=== PATIENT | female | born 1970 | race Caucasian/White ===

== ENCOUNTER 2022-07-14 12:51 | Outpatient (RCR) | payer OTHER, SELFPAY ==
--- NOTE | 2022-07-22 11:32 | MHC.SP.ADU ---
Referring provider: Dr. Augustina Larson Reason for Referral: Referred by MD at request of patient. 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 Susi reports that her main issue is that she is too loud and talks too fast and her family members complain that she is hurting their ears. She reports that her family is her Mother and disabled brother with whom she currently lives in [place]. Susi reports that she is trilingual, with her first language being French, her second, Finnish and her third, Citizen [place] Sign Language (ASL). During this assessment, an interface analyst was present throughout, and Susi primarily communicated in ASL. She reported that she became deaf at age 1 after an episode of Chicken Pox, and soon after, her Family returned for a period of time to [employer], which was the first language she was exposed to. The family returned to the and she began her education at [employer], being initially instructed in Oral Language. She reports that she was very frustrated during her time at [employer] and quit when she was 9 years old. 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 She progressed from there to [employer], where she said she first learned true ASL, and earned a Bachelor's degree. 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 Her primary communication/language as an adult has been ASL, however this has created challenges with communicating with her family members who are hearing and do not have ASL proficiency. Susi reports that she did wear hearing aids for a period of time when she was working, but found they mostly picked up and amplified environmental noise which gave her migraines. However she stated that she went to see an ENT in 2021 who referred her for hearing aids, but as of yet she has not found a dispenser who will take her medical insurance. She also reports that she attended Speech Therapy last fall for a period of four weeks in [place], but she did not feel they were able to address her specific needs, as she reported they mostly worked with people who had strokes. Susi is currently using a walker to ambulate and attending physical and occupational therapy, due to an injury following a fall as well as vertigo. Medical History: Allergies Arthritis Head Injury Hearing Loss Thyroid Issues Other: Vertigo, Fibromyalgia, Rich's Disease, Migraines Medication List: Recent Hospitalizations: No Respiratory Needs: Room Air Patient Orientation: Alert & Oriented x 4 Social History: Employment Status: Unemployed Highest level of education obtained: Completed Bachelor's Current Living Situation: Lives with mother and disabled adult brother in a private home in [place], [place]. Assistive Devices in use: Cane, Walker Past Speech Language Therapy: [facility] Speech/Language, Fall of 2021 for a period of four weeks. Other Therapies Seen in Current Calendar Year: Occupational Therapy Physical Therapy Swallowing History: Dysphagia Specific: Within Functional Limits Comments: n/a Reported Speech, Language, Cognition difficulties: Speaking Comments: Candy King expresses a great deal of frustration with being to communicate well and effectively using oral language with others, with reports that her family state that she is too loud, gives them a headache, and that she talks too fast. Due to hearing impairment, she is unable to self monitor her oral communication. She additionally reports that all oral communication training she received during her education was poor and done only in the context of regular education instruction (e.g. had no special instruction specifically in oral communication). Quality of Life: Good Patient Stated Goal of Speech-Language Therapy: Assess stimulability for visual feedback/monitoring of voice and speech, ongoing assessment of oral speech articulation needs. Assessment Speech Production: Clinical Impression: Imprecise articulation of speech sounds, omission of sounds, irregular stress pattern, limited prosody. Voice Assessment: Voice Loudness: Severely Soft/Quiet Voice Nasal Resonance: Hypernasal Voice Oral Resonance: Normal Voice Phonatory-based Quality: Strident, Harsh Voice Pitch: Mildly High Voice Other Observations: Disordered Intonation, Disordered Stress Pattern Breath Support: Abdominal at rest, during phonation, during conversation Postural: Balanced Stance, neck static, shoulders symmetrical. Mild jaw tension noted. Therapeutic Probes: Shifting tone focus: Effortful. reduced pitch range Easy Onset: Imprecise articulation Hard Glottal Attack: Imprecise articulation Increase loudness: Effortful, limited Decrease loudness: Effortful Increase fundamental frequency: Effortful, limited range Decrease fundamental frequency: Effortful, limited range Stimulability and level of cuing: Moderat Clinicial Observations: Susi presents with moderate to severe issues related to voice and speech production secondary to deaf/ZUNI, multilingual communication background and a history limited specialized training in oral communication.? Susi's primary complaint and reason for seeking Speech/Language Therapy is for her hearing family members to comfortably understand her when she speaks.? On assessment today, both scripted and spontaneous speech evidences low volume (which contrasts with Susi's stated perception that she is too loud ), strident/harsh/nasal vocal quality, limited prosody as it relates to speech intonation and stress pattern, and imprecise articulation of many speech sounds.? Susi's oral speech to an unfamiliar listener would be very limited in intelligibility.? However, importantly, Meghas primary form of communication is ASL, and she is a highly effective communicator in this language. Candy's goal, however is to be a more effective communicator in oral language. Impressions and Recommendations Summary: Impact on Daily Function/Activity Limitations: Daily Activities: Severe Interpersonal Interactions: Severe Community: Severe Prognosis for Improvement: Guarded Comment: Note: Guarded impact/prognosis noted above is for oral communication only. Susi in ASL is highly effective communicator, and in that language, she is able to function in all daily aspects normally. Prognosis for improvement is guarded due to level and severity of intelligibility or oral speech and age. Recommendation for Speech Therapy: Frequency/Duration: One, fourty five minute speech therapy session weekly, as a trial for a period of four weeks to determine stimulability and effectiveness Date Range for Service Requested: Three months if intervention evidences progress after four weeks. Time to Reassess: Four weeks Operator/Assistant Foreman Goals: Sammy will improve vocal volume, prosody and articulation for oral communication. Short Term Goals: Goal # : Susi will complete the [place] Test of Articulation to assess speech sound production in Finnish. Goal Status: Goal# : Using a visual feedback device, Sammy will use appropriate vocal volume, with loudness at an appropriate audible level 80% of the time in observed contexts. Goal Status: Goal # : Using a visual feedback device or pacing strategy, Sammy will slow her rate of speech in 4 out of 5 conversational context. Goal Status: Goal # : Using visual cuing, Candy will produce varied target consonant sounds in Finnish with 80% accuracy. Goal Status: Patient Education: Completed: Yes Patient/Caregiver Education: Described Results of Evaluation Patient expressed understanding of evaluation Patient agrees with goals and treatment plan Comments/Barriers to Learning: Radiosonde Specialist Clinican/Clinical Fellow: No Supervisory Statement: N/A Speech Language Pathologist: Lilly Weber M.A., CCC-PATTERN CHAIN MAKER SUPERVISOR
== END 2022-08-11 12:44 | disposition still patient (30) ==
LOC: HO.SH 12:51
PROVIDERS: Visit Provider Pediatrics
DX: F80.4 Speech and language development delay due to hearing loss (principal)
CPT/HCPCS: 92524

== ENCOUNTER 2023-05-17 11:00 | Outpatient (RCR) | payer OTHER, SELFPAY ==
--- NOTE | 2023-02-22 15:29 | MHC.SL.SOA ---
Referring Provider: Dr. Augustina Larson Reason for Referral: Referred by MD at request of patient. 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 Primary Speech Language Diagnosis:F80.4 Speech and language development delay due to hearing loss Secondary Speech Language Diagnosis:R49.9 Unspecified voice Number of Authorized Visits Remaining: Authorization End Date: Reason for Visit:[id number] Individual Treatment Other: Subjective:Candy Arnett was on time for today's session which ran more than the allotted 45 minutes. The past several sessions had been cancelled due to therapist and Candy's illnesses, difficulties scheduling an grading machine feeder, as well as problems with transportation, which failed to show up last week. Candy, as a consequence, had quite a bit to report, and initially took considerable time talking about issues through the grading machine feeder, before settling down and getting to therapy tasks. The continuation of therapy was discussed at length with Candy at the end of the session, as she currently needs Insurance re-authorization to continue, and for the most part has met attainable currently therapy goals. Candy has an ongoing desire to improve her oral speech for daily communication needs, however this has not been her primary communication mode for most of her adult life (her dominant communication/language is ASL), nor did she acquire a good basis for this communication mode during her primary and secondary school education, where these skills are normally instructed over an extended period of development. It was explained that affective acquisition of oral language would be a long process, that may not be supported by insurance given it is essentially instructing a language as well as shaping specific articulation targets for effective communication. Candy requested that a direct inquiry be made to her insurance carrier to determine if it will cover this type of intervention through speech therapy. Objective: Candy worked on breath support, monitoring volume and accurate production of [place] speech sounds in structured therapeutic activities. Assessment:Goal #1: Candy produced minimal pairs with contrasting vowel sounds: long a and short a with 70% accuracy, again having most difficulty with words that have long a followed by /l/ or /t/ which targets could not be reliably stimulated. On mimimal pair contrasts of long and short /e/ she also needed direct and specific cuing to produce the contrasting sounds (60% accuracy). Goal #2: Candy produced volume variation with a simple visual prompt (e.g. arrow going up or down) with good accuracy today (80%). Physical context cues (e.g. physical energy/breath support on loud voice) as well as social context cues (listener's behavior with loud/soft voice) were reviewed, with Candy giving good self reporting. Goal #3: Pacing of speech when using oral communication was wfl. Goal #4: n/a this session due to time constraints. Additionally: Direct caption/translation brian was modelled and set up for Candy on her IPad as well as modelled on an [employer] phone. The brian very accurately captioned oral communication of both hearing speakers present (the therapist and the ASL strategic planning director) but omitted or poorly interpreted Candy's oral speech (and therefore not an appropriate feedback device for helping her independently practice her speech). Candy also demonstrated an Brian she has on her phone that can cue her if her voice resembles shouting as well as other loud environmental sounds that she does not hear (dog barking, car horn, etc.). Notes: Ongoing assessment of speech articulation and sounds in error. Ongoing assessment for stimulability for self monitoring using visual feedback. Plan: Goal # : Susi will produce target speech sounds in the initial position in words in the context of an utterance (targets: s, r, ch, dj, sh) with 80% accuracy Status of Goal: Revised Goal Goal # : Using a visual feedback device, Sammy will use appropriate vocal volume, with loudness at an appropriate audible level 80% of the time in observed contexts. Status of Goal: Goal # : Using a visual feedback device or pacing strategy, Sammy will slow her rate of speech in 4 out of 5 conversational context. Status of Goal: Goal # : Using visual cuing, Candy will produce varied target consonant sounds in [place] with 80% accuracy. Status of Goal: Seen by: Graduate/Clinical Fellow: No Supervisory Statement: f_Reg Query Last Value , MHC.AU.SIGNATUR Speech Language Pathologist: Lilly Weber M.A., CCC-LAVENDER FARM WORKER
== END 2023-06-10 16:05 | disposition still patient (30) ==
LOC: HO.SH 11:00
PROVIDERS: Visit Provider Pediatrics
DX: F80.4 Speech and language development delay due to hearing loss (principal); R49.9 Unspecified voice and resonance disorder
CPT/HCPCS: 92507

== ENCOUNTER 2023-09-27 11:00 | Outpatient (RCR) | payer OTHER, SELFPAY ==
--- NOTE | 2023-06-29 12:28 | MHC.SL.SOA ---
Addendum entered and electronically signed by KOBY Campos 06/29/23 12:50: Candy Huston current PCP is Mell Whitfield MD; not Dr. Augustina Larson as listed below (former PCP who gave initial referral). Original Note: Referring Provider: Dr. Augustina Larson Reason for Referral: Referred by MD at request of patient. Date of Plan of Treatment:07/14/22 Onset of Symptoms/Illness:07/15/19 Date Treatment Started:07/14/22 Medical Diagnosis: Primary Speech Language Diagnosis:R49.8 Unspecified voice and resonance disorders Secondary Speech Language Diagnosis:F80.0 Specific developmental disorders of speech and language Number of Authorized Visits Remaining: Authorization End Date: Reason for Visit:10011 Individual Treatment Other: Subjective:Candy Arnett was on time for [facility] appointment with the full time staff interpreter arriving a few minutes late. Candy was again quite voluble at the start of the session, reporting about all members of her family being ill and the of a close friend. Part of today's session was a brief re-assessment of articulation skills using an informal measure (protocol from [facility] ) as well as some initial discussion regarding the rational for continuing therapy for oral language improvement. As this discussion began at the end of the session and generated many comments, it was tabled for the next meeting. Objective: Sammy practiced structured exercises to improve control of vocal volume, articulation of specific speech sounds, and pacing strategies to improve her functional ability to orally communicate with hearing communication partners who do not understand ASL. Assessment:Re-assessment/screen of Speech Articulation (Protocol from [facility]ria/[facility] ). Bilabial Sounds: Occasional de-voicing of /b/; Alveolar sounds: devoicing of /d/; Sibilants(s, z, sh): distortion or fronting (e.g. ItEE for icy) of all sounds in all positions; Affricates (ch, dj): Distortion or /t/ substitution of all sounds in all positions; Glides (l, j, w): accurate production; /s/ Blends: distortion, omission or substitutions (with/t/) in all positions; /l/ blends: omission in medial and final positions, accurate production medially. VOWELS: Frequent distortion or substitution (e.g. long /A/ for short /a/). Commentary/Discussion: Vowel distortions and substitutions, errors with full classes of sounds (Sibilants, Affricates, Blends, devoicing) make Candy Arnett mostly unintellgible in her oral speech to both unfamiliar and trained listeners. Although Candy has made progress when doing structured exercises at the word level with specific sounds during speech session, skills, even at the word level, have not generalized to her spontaneous speech and limited progress is evident. Goal #1: Candy produced initial s words with 70% accuracy. Goal #2: Candy presented with appropriate vocal volume throughout the session. She frequently questioned if she sounded hoarse, which she did not. Goal 3: n/a this session. Goal 4: On vowel contrasts, Candy produced long /a/ in CVC/CVCe words after some initial cuing where the target was elicited in isolation, reinforced, and then cued to say words, with 80% accuracy. With similar cuing, Candy produced short /a/ in cvc words with 60% accuracy. When asked to alternate minimal pair words (long/a/ short /a/) both targets became unstable with less than 50% accuracy in production. On long /I/, vowel in isolation could not be stabilized. Notes: Ongoing assessment of speech articulation and sounds in error. Ongoing assessment for stimulability for self monitoring using visual feedback. Plan: Goal # : Susi will produce target speech sounds in the initial position in words in the context of an utterance (targets: s, r, ch, dj, sh) with 80% accuracy Status of Goal: Goal # : Using a visual feedback device, Sammy will use appropriate vocal volume, with loudness at an appropriate audible level 80% of the time in observed contexts. Status of Goal: Goal # : Using a visual feedback device or pacing strategy, Sammy will slow her rate of speech in 4 out of 5 conversational context. Status of Goal: Goal # : Using visual cuing, Candy will produce varied target vowel sounds in Wallisian with 80% accuracy. Status of Goal: Revised Goal Seen by: Graduate/Clinical Fellow: No Supervisory Statement: f_Reg Query Last Value , MHC.AU.SIGNATUR Speech Language Pathologist: Lilly Weber M.A., CCC-RADIO INTERFERENCE TROUBLE SHOOTER
--- NOTE | 2023-09-27 15:51 | MHC.SL.SOA ---
Referring Provider: Dr. Augustina Larson Reason for Referral: Referred by MD at request of patient. Date of Plan of Treatment:07/14/22 Onset of Symptoms/Illness:07/15/19 Date Treatment Started:07/14/22 Medical Diagnosis: Primary Speech Language Diagnosis:R49.8 Unspecified voice and resonance disorders Secondary Speech Language Diagnosis:F80.0 Specific developmental disorders of speech and language Number of Authorized Visits Remaining: Authorization End Date: Reason for Visit:[id number] Individual Treatment Other: Subjective:Candy Arnett was on time for today's final speech therapy session. She was given a laminated cue card with specific strategies to use/focus on when she is communicating orally. While she agreed that this would be the final session, having completed work on targeted functional communication, she had many questions about having more therapy at a later time. She was advised that this would only be warranted if there was a specific, short term functional communication need she wanted to focus on, and would require another MD order. Candy was given specific feedback on the areas where she showed improvement, and areas that are still problematic and can affect her intelligibility. Objective: Sammy practiced structured exercises to improve control of vocal volume, articulation of specific speech sounds, and pacing strategies to improve her functional ability to orally communicate with hearing communication partners who do not understand ASL. Assessment:1, /s/ in initial positions in words was at 80% accuracy /z/ was produced in isolation and in initial positions in words with some exaggeration and strategies a 60%. Sh in initial positions in words is at 80%. CH in initial position in words is at 70%, Dj in initial positions in words is at 70% 2. Monitoring her breath support, Candy raised and lowered her volume during a counting exercise with 80% accuracy. She was noted to use raised volume at the end of specific phrases to indicate/communicate exclamation point. 3. Using a phonemic quality assurance clerk of the target functional words and dot annotation for syllabication of words, Candy produced single, double and triple syllable functional words she had elected with 70% intelligibility. Candy was reminded that the tapping strategy taught to her for multisyllable production was specifically to say all the syllables in words and to slow production. 4. Candy produced phrases and sentences that targeted functional communication contexts (cooking with her mother, home organization, health advocacy) demonstrating 70% intelligibility. Summary/Conclusions: Candy has made some gains in her general oral communication. When given structure, she can slow her rate of speech, focus on saying all sounds and syllables in words, and she has improved with some specific speech sounds that previously were distorted or hard to produce (/s/, /sh/, /g/, /k/, /f/, /th/). Some speech sounds continue to be unstable (/z/, /ch/, /dj/, /j/ /ng/) and have been difficult to establish. She has been able to produce functional phrases and sentences with at least 70% intelligibility. Notably, however, Candy has on several occasions noted that she has not been using strategies or generalizing oral communication skills to other contexts, and during the course of therapy, did not grow in her relative independence with orally communicating, continuing to rely on ASL and interpreters to express herself during therapy. Although she has enthusiastically participated in therapy during the course of her treatment, it has often been unclear how motivated she is to use oral communication in other contexts. Speech therapy at this time is discontinued, as further work is not indicated at this time. Notes: Ongoing assessment of speech articulation and sounds in error. Ongoing assessment for stimulability for self monitoring using visual feedback. Plan: Goal # : Susi will produce target speech sounds in the initial position in words in the context of an utterance (targets: s, r, ch, dj, sh) with 80% accuracy Status of Goal: Revised Goal Goal # : Using a visual feedback device, Sammy will use appropriate vocal volume, with loudness at an appropriate audible level 80% of the time in observed contexts. Status of Goal: Revised Goal Goal # : Using a visual feedback device or pacing strategy, Sammy will slow her rate of speech in 4 out of 5 conversational context. Status of Goal: Goal Continued Goal # : Using visual cuing, Candy will produce varied target consonant sounds in Spanish with 80% accuracy. Status of Goal: Revised Goal Seen by: Graduate/Clinical Fellow: No Supervisory Statement: f_Reg Query Last Value , MHC.AU.SIGNATUR Speech Language Pathologist: Lilly Weber M.A., CCC-AOC PLANS INTELLIGENCE OFFICER
== END 2023-09-28 08:10 | disposition home or self-care (01) ==
LOC: HO.SH 11:00
PROVIDERS: PCP Pediatrics; Visit Provider Pediatrics
DX: F80.0 Phonological disorder (principal); R49.8 Other voice and resonance disorders
CPT/HCPCS: 92507